=== PATIENT | male | born 1990 | race African-American/Black ===

== ENCOUNTER 2019-02-26 10:14 | Emergency (ER) | payer SELFPAY ==
[~2019-02-26] VITALS: Ht 185.4 cm; Wt 141.5 kg
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
--- NOTE | 2019-02-26 10:37 | NUR ---
SEEN AND EXAMINED BY DR. LI.
--- NOTE | 2019-02-26 10:45 | NUR ---
IV LINE ESTABLISHED, BLOOD DRAWN AND SENT TO LAB.
[2019-02-26 10:50] LABS: BASOPHILS # (AUTO) 0.1 /CMM (0.0-0.2); BASOPHILS % (AUTO) 0.6 % (0.0-2.0); EOSINOPHILS % (AUTO) 0.3 % (0.0-6.0); HEMATOCRIT 46 % (39-51); HEMOGLOBIN 15.5 g/dL (13.5-17.5); LYMPHOCYTES % (AUTO) 11.9 % (20.0-44.0); MEAN CORPUSCULAR HGB CONC 34 g/dl (31.0-36.0); MEAN CORPUSCULAR VOLUME 89 fL (80-96); MONOCYTES # (AUTO) 0.5 /CMM (0.1-1.30); MONOCYTES % (AUTO) 6.4 % (2.0-12.0); NEUTROPHILS # (AUTO) 6.8 /CMM (1.8-8.9); NEUTROPHILS % (AUTO) 80.8 % (43.0-81.0); PLATELET COUNT (AUTO) 246 /CMM (150-450); RED BLOOD CELL COUNT(AUTO) 5.13 MIL/uL (4.5-6.0); WHITE BLOOD COUNT (AUTO) 8.4 K/uL (4.3-11.0)
--- NOTE | 2019-02-26 11:10 | NUR ---
MANUFACTURING SHIFT SUPERVISOR AT BEDSIDE FOR XRAY.
[2019-02-26 11:11] LABS: CALCIUM, SERUM 9.2 mg/dL (8.5-10.1); CREATININE 1.2 mg/dL (0.6-1.3); POTASSIUM 3.9 mmol/L (3.5-5.1)
[2019-02-26 11:16] LABS: ALBUMIN 4.1 g/dL (3.4-5.0); BILIRUBIN,DIRECT 0.2 mg/dL (0.0-0.2); BILIRUBIN,TOTAL 0.9 mg/dL (0.2-1.0)
[2019-02-26] MEDS ORDERED: IV NS 0.9% 250 ML IV ONE (11:23)
[2019-02-26] MEDS ORDERED: IOHEXOL-300 100 ML VIAL IV ONE (11:23)
[2019-02-26] MEDS ORDERED: CT SWABBABLE VALVE TRANS SET 1 EA INFUS.SET MC ONE (11:23)
--- NOTE | 2019-02-26 11:41 | NUR ---
PT IS BACK FROM THE CT SCAN.
[2019-02-26 11:43] LABS: TOTAL PROTEIN, SERUM 7.2 g/dL (6.4-8.2)
--- NOTE | 2019-02-26 12:49 | NUR ---
Patient discharged to home in stable condition. Written and verbal after care instructions given. Patient verbalizes understanding of instruction. IV removed. Catheter intact and site benign. Pressure and 4x4 applied to site. No bleeding noted.
[2019-02-26 12:50] VITALS: BP 122/71
== END 2019-02-26 12:52 | disposition home or self-care (01) ==
LOC: ER 10:22
DX: S30.1XXA Contusion of abdominal wall, initial encounter (principal); S20.312A Abrasion of left front wall of thorax, initial encounter; R07.81 Pleurodynia; F10.10 Alcohol abuse, uncomplicated; Y90.9 Presence of alcohol in blood, level not specified; Z98.890 Other specified postprocedural states; V49.49XA Driver injured in collision with other motor vehicles in traffic accident, initial encounter; Y93.89 Activity, other specified; Y92.488 Other paved roadways as the place of occurrence of the external cause; Y99.8 Other external cause status
CPT/HCPCS: 36415; 71045; 74177; 80048; 80076; 83690; 85025; 99284; J7050; Q9967